=== PATIENT | female | born 1975 | race African-American/Black ===

== ENCOUNTER 2016-11-30 18:04 | Emergency (ER) | payer MEDICAID ==
[~2016-11-30] VITALS: Ht 167.6 cm; Wt 79.4 kg
[2016-11-30] MEDS ORDERED: NKM (18:15)
--- NOTE | 2016-11-30 18:39 | Emergency Room Report ---
History of Present Illness General Chief Complaint: Female Urogenital Problems Source: Patient Present Illness HPI 41-year-old female presents to the emergency department for complaint of urgency , frequency and mild dysuria for almost 2 weeks. Patient reports hematuria. Patient denies abdominal pain, abdominal tenderness, nausea, vomiting, fevers, chills. She denies low back pain or vaginal discharge. Patient states she also like check. Denies rashes. Denies CP, Palpitations, LOC, AMS, dizziness, Changes in Vision, Sensation, paresthesias, or a sudden severe headache. Allergies: Coded Allergies: No Known Allergies (Unverified , 11/30/16) Patient History Past Medical History: see triage record Past Surgical History: none Pertinent Family History: none Last Menstrual Period: Two weeks ago Now: No Reviewed Nursing Documentation: PMH: Agreed, PSxH: Agreed Nursing Documentation-PMH Past Medical History: No Stated History Review of Systems All Other Systems: negative except mentioned in HPI Physical Exam Vital Signs Date Time Temp Pulse Resp B/P Pulse Ox O2 Delivery O2 Flow Rate FiO2 11/30/16 18:11 98.4 93 16 146/87 99 Room Air Sp02 EP Interpretation: reviewed, normal General Appearance: no apparent distress, alert, GCS 15, non-toxic Head: normocephalic, atraumatic Eyes: bilateral eye PERRL, bilateral eye normal inspection ENT: hearing grossly normal, normal voice Neck: full range of motion Respiratory: lungs clear, normal breath sounds, speaking full sentences Cardiovascular #1: regular rate, rhythm Gastrointestinal: normal bowel sounds, non tender, soft, no guarding, no rebound Genitourinary: normal inspection, no CVA tenderness Musculoskeletal: back normal, gait/station normal, normal range of motion Neurologic: alert, oriented x3, responsive, motor strength/tone normal, sensory intact, speech normal Skin: normal color, no rash, warm/dry, well hydrated Medical Decision Making PA Attestation Dr. Chong is my supervising Physician whom patient management has been discussed with. Diagnostic Impression: Primary Impression: Urinary tract infection Qualified Codes: N30.00 - Acute cystitis without hematuria ER Course 41-year-old female presents to the emergency department for complaint of urgency , frequency and mild dysuria for almost 2 weeks. Patient reports hematuria. Patient denies abdominal pain, abdominal tenderness, nausea, vomiting, fevers, chills. She denies low back pain or vaginal discharge. Patient states she also like check. Denies rashes. Denies CP, Palpitations, LOC, AMS, dizziness, Changes in Vision, Sensation, paresthesias, or a sudden severe headache. Ddx considered but are not limited to UTi , Pyelo, STI, Stone, Cystitis Vital signs: are WNL, pt. is afebrile H&PE are most consistent with UTI ORDERS: - UA labs are attached : elevated WBC's , leukocytes, and few bacteria indicating urinary infection. -Urine Hcg: Negative ED INTERVENTIONS: -Pyridium PO DISCHARGE: At this time pt. is stable for d/c to home. Will provide printed patient care instructions, and any necessary prescriptions. Care plan and follow up instructions have been discussed with the patient prior to discharge. Labs Test 11/30/16 18:27 Urine Color Pale yellow Urine Appearance Clear Urine pH 5 (4.5-8.0) Urine Specific [place] 1.010 (1.005-1.035) Urine Protein Negative (NEGATIVE) Urine Glucose (UA) Negative (NEGATIVE) Urine Ketones Negative (NEGATIVE) Urine Occult Blood 1+ (NEGATIVE) Urine Nitrite Negative (NEGATIVE) Urine Bilirubin Negative (NEGATIVE) Urine Urobilinogen Normal MG/DL (0.0-1.0) Urine Leukocyte Esterase 3+ (NEGATIVE) Urine RBC 2-4 /HPF (0 - 2) Urine WBC 5-10 /HPF (0 - 2) Urine Squamous Epithelial Cells Moderate /LPF (NONE/OCC) Urine Bacteria Few /HPF (NONE) Last Vital Signs Date Time Temp Pulse Resp B/P Pulse Ox O2 Delivery O2 Flow Rate FiO2 11/30/16 18:11 98.4 93 16 146/87 99 Room Air Disposition: HOME, SELF-CARE Condition: Stable Scripts Phenazopyridine Hcl* (PYRIDIUM*) 100 Mg Tablet 100 MG ORAL THREE TIMES A DAY for 3 Days, #9 TAB Prov: Meagan Villar 11/30/16 Nitrofurantoin Monohyd/M-Cryst* (MACROBID 100 MG*) 100 Mg Capsule 100 MG ORAL EVERY 12 HOURS for 5 Days, #10 CAP Prov: Meagan Villar.Moises 11/30/16 Patient Instructions: Urinary Tract Infection Additional Instructions: Take medications as directed. Follow up with a Primary Care Provider in 3-5 days, even if your symptoms have resolved. --Please review list of primary care clinics, if you do not already have a primary care provider Return sooner to ED if new symptoms occur, or current symptoms become worse. Pyridium will cause your urine to change color (Red/Wheeler), this is a normal side effect of the medication. - Please note that this Emergency Department Report was dictated using [employer] manager technology software, occasionally this can lead to erroneous entry secondary to interpretation by the dictation equipment. Meagan Villar Nov 30, 2016 18:39
[2016-11-30 18:45] LABS: APPEARANCE,URINE CLEAR; KETONES,URINE NEGATIVE (NEGATIVE); LEUKOCYTE ESTERASE ,URINE 3+ (NEGATIVE); NITRITE,URINE NEGATIVE (NEGATIVE); PH,URINE 5 (4.5-8.0); PROTEIN,URINE NEGATIVE (NEGATIVE); UROBILINOGEN,URINE NORMAL MG/DL (0.0-1.0)
[2016-11-30 18:46] VITALS: BP 142/85
[2016-11-30 19:38] LABS: BACTERIA,URINE FEW /HPF; SQUAMOUS EPITHELIAL CELL,UR MODERATE /LPF (NONE/OCC)
[2016-11-30] MEDS ORDERED: NITROFURANTOIN100 M2 ORAL (19:44)
[2016-11-30] MEDS ORDERED: PHENAZOPYRIDIN100 MG ORAL (19:44)
[2016-11-30 19:53] VITALS: BP 142/85
== END 2016-11-30 19:53 | disposition home or self-care (01) ==
LOC: EMR 18:57
DX: N30.00 Acute cystitis without hematuria (principal)
CPT/HCPCS: 81003; 81025; 99284

== ENCOUNTER 2017-01-21 19:04 | Emergency (ER) | payer MEDICAID ==
[~2017-01-21] VITALS: Ht 167.6 cm; Wt 86.2 kg
[~2017-01-21 19:04] MED LIST: NITROFURANTOIN100 M2 ORAL; NKM; PHENAZOPYRIDIN100 MG ORAL
[2017-01-21 20:13] LABS: KETONES,URINE 1+ (NEGATIVE); LEUKOCYTE ESTERASE ,URINE 3+ (NEGATIVE); NITRITE,URINE NEGATIVE (NEGATIVE); PH,URINE 7 (4.5-8.0); PROTEIN,URINE 1+ (NEGATIVE); UROBILINOGEN,URINE NORMAL MG/DL (0.0-1.0)
[2017-01-21 20:14] LABS: APPEARANCE,URINE SLIGHTLY CLOUDY
[2017-01-21 20:18] LABS: BACTERIA,URINE MODERATE /HPF; SQUAMOUS EPITHELIAL CELL,UR MODERATE /LPF (NONE/OCC); WBC,URINE 15-20 /HPF (0 - 2)
[2017-01-21 20:19] LABS: AMORPHOUS SEDIMENT,UR FEW /LPF
--- NOTE | 2017-01-21 20:25 | Emergency Room Report ---
History of Present Illness General Chief Complaint: Female Urogenital Problems Source: Patient Present Illness HPI 31-year-old female presents to the emergency department complaining of hematuria for almost 3 weeks. Patient denies dysuria, frequency. Patient does report history of prolonged vaginal bleeding several months ago. Patient states she has scant blood in the urine and sometimes spotting. She denies trauma or fall. Patient states she feels as though she is retaining urine however does not always produce urine when she goes to the bathroom. Patient denies fevers, chills, low back pain or abdominal pain. She denies . Denies CP, Palpitations, LOC, AMS, dizziness, Changes in Vision, Sensation, paresthesias, or a sudden severe headache. Allergies: Coded Allergies: No Known Allergies (Unverified , 11/30/16) Patient History Past Medical History: see triage record Past Surgical History: none Pertinent Family History: none Last Menstrual Period: last month Now: No Immunizations: UTD Reviewed Nursing Documentation: PMH: Agreed, PSxH: Agreed Nursing Documentation-PMH Past Medical History: No Stated History Review of Systems All Other Systems: negative except mentioned in HPI Physical Exam Vital Signs Date Time Temp Pulse Resp B/P (MAP) Pulse Ox O2 Delivery O2 Flow Rate FiO2 01/21/17 19:16 98.2 71 18 145/85 99 Room Air Sp02 EP Interpretation: reviewed, normal General Appearance: no apparent distress, alert, GCS 15, non-toxic Head: normocephalic, atraumatic Eyes: bilateral eye normal inspection, bilateral eye PERRL ENT: hearing grossly normal, normal voice Neck: full range of motion Respiratory: lungs clear, normal breath sounds, speaking full sentences Cardiovascular #1: regular rate, rhythm Gastrointestinal: normal bowel sounds, non tender, soft, no guarding, no rebound Rectal: deferred Genitourinary: normal inspection, no CVA tenderness Musculoskeletal: back normal, gait/station normal, normal range of motion, non- tender Neurologic: alert, oriented x3, responsive, motor strength/tone normal, speech normal Psychiatric: judgement/insight normal, memory normal, mood/affect normal Skin: normal color, no rash, warm/dry, well hydrated Medical Decision Making PA Attestation Dr. Guajardo is my supervising Physician whom patient management has been discussed with. Diagnostic Impression: Primary Impression: UTI (urinary tract infection) Qualified Codes: N30.01 - Acute cystitis with hematuria Additional Impression: Dysfunctional uterine bleeding ER Course 31-year-old female presents to the emergency department complaining of hematuria for almost 3 weeks. Patient denies dysuria, frequency. Patient does report history of prolonged vaginal bleeding several months ago. Patient states she has scant blood in the urine and sometimes spotting. She denies trauma or fall. Patient states she feels as though she is retaining urine however does not always produce urine when she goes to the bathroom. Patient denies fevers, chills, low back pain or abdominal pain. She denies . Denies CP, Palpitations, LOC, AMS, dizziness, Changes in Vision, Sensation, paresthesias, or a sudden severe headache. Ddx considered but are not limited to: Fibroid, ectopic , Malignancy, Spontaneous , , DUB Vital signs: are WNL, pt. is afebrile H&PE are most consistent with: possible UTI, and hx of DUB ORDERS: -UA: Moderate bacteria, elevated WBC's, Leukocytes, and RBC's indicating UTI -Urine Hcg:Negative ED INTERVENTIONS: None at this time. - Encouraged PT. to follow up with her OBGYN, d/w pt. she will be placed on oral abx for UTI. DISCHARGE: At this time pt. is stable for d/c to home. Will provide printed patient care instructions, and any necessary prescriptions. Care plan and follow up instructions have been discussed with the patient prior to discharge. Labs Test 01/21/17 19:25 Urine Color Yellow Urine Appearance Slightly cloudy Urine pH 7 (4.5-8.0) Urine Specific [place] 1.010 (1.005-1.035) Urine Protein 1+ (NEGATIVE) Urine Glucose (UA) 3+ (NEGATIVE) Urine Ketones 1+ (NEGATIVE) Urine Occult Blood 3+ (NEGATIVE) Urine Nitrite Negative (NEGATIVE) Urine Bilirubin Negative (NEGATIVE) Urine Urobilinogen Normal MG/DL (0.0-1.0) Urine Leukocyte Esterase 3+ (NEGATIVE) Urine RBC 10-15 /HPF (0 - 2) Urine WBC 15-20 /HPF (0 - 2) Urine Squamous Epithelial Cells Moderate /LPF (NONE/OCC) Urine Amorphous Sediment Few /LPF (NONE) Urine Bacteria Moderate /HPF (NONE) Urine HCG, Qualitative Negative Last Vital Signs Date Time Temp Pulse Resp B/P (MAP) Pulse Ox O2 Delivery O2 Flow Rate FiO2 01/21/17 19:16 98.2 71 18 145/85 99 Room Air Disposition: HOME, SELF-CARE Condition: Stable Scripts Nitrofurantoin Monohyd/M-Cryst* (MACROBID 100 MG*) 100 Mg Capsule 100 MG ORAL EVERY 12 HOURS for 5 Days, #10 CAP Prov: Meagan Villar 01/21/17 Ibuprofen* (MOTRIN*) 600 Mg Tablet 600 MG ORAL THREE TIMES A DAY, #30 TAB 0 Refills Prov: Meagan Villar 01/21/17 Patient Instructions: Dysfunctional Uterine Bleeding, Urinary Tract Infection Additional Instructions: Take medications as directed. Follow up with a OBGYN in 3-5 days, even if your symptoms have resolved. * * May require evaluation for prolonged vaginal bleeding. --Please review list of primary care clinics, if you do not already have a primary care provider Return sooner to ED if new symptoms occur, or current symptoms become worse. - Please note that this Emergency Department Report was dictated using [employer] technology software, occasionally this can lead to erroneous entry secondary to interpretation by the dictation equipment. Meagan Villar Jan 21, 2017 20:25
[2017-01-21] MEDS ORDERED: NITROFURANTOIN100 M2 ORAL (20:52)
[2017-01-21] MEDS ORDERED: IBUPROFEN600 MG ORAL (20:52)
[2017-01-21 21:10] VITALS: BP 145/85
== END 2017-01-21 21:11 | disposition home or self-care (01) ==
LOC: EMR 20:20
DX: R31.9 Hematuria, unspecified (principal); N39.0 Urinary tract infection, site not specified; N93.8 Other specified abnormal uterine and vaginal bleeding
CPT/HCPCS: 81003; 81025; 87086; 99284

== ENCOUNTER 2017-02-04 09:36 | Emergency (ER) | payer MEDICAID ==
[~2017-02-04] VITALS: Ht 167.6 cm; Wt 81.6 kg
[~2017-02-04 09:36] MED LIST changes: +IBUPROFEN600 MG ORAL
[2017-02-04] MEDS ORDERED: EPINEPHrine 1mg/1ml Amp IM ONE (10:30)
[2017-02-04 10:46] VITALS: BP 125/76
[2017-02-04 10:47] VITALS: BP 126/80
--- NOTE | 2017-02-04 11:09 | Emergency Room Report ---
History of Present Illness General Chief Complaint: Skin Rash/Abscess Source: Patient Present Illness HPI This patient states that she has been on Macrobid for a urinary tract infection. She states that about 4 days and to the treatment she developed itching and hives. She states that the hives come and go. She denies throat swelling or tongue swelling. She denies chest tightness or shortness of breath. She denies abdominal pain. She states that she has not followed up with her primary care physician to see if her UTI as a result. She denies fever or chills. She denies nausea or vomiting. She denies dysuria or hematuria. She states that she has had relentless itching. She did try Benadryl and continues to get hives despite this. She has no other complaints. Allergies: Coded Allergies: No Known Allergies (Unverified , 11/30/16) Patient History Past Medical History: none Social History: Denies: smoking, alcohol use, drug use Reviewed Nursing Documentation: PMH: Agreed, PSxH: Agreed Nursing Documentation-PMH Past Medical History: No Stated History Review of Systems All Other Systems: negative except mentioned in HPI Physical Exam Vital Signs Date Time Temp Pulse Resp B/P (MAP) Pulse Ox O2 Delivery O2 Flow Rate FiO2 02/04/17 09:39 98.6 83 20 132/79 100 Room Air Sp02 EP Interpretation: reviewed, normal General Appearance: no apparent distress, alert, GCS 15, non-toxic Head: normocephalic, atraumatic Eyes: bilateral eye normal inspection, bilateral eye PERRL ENT: hearing grossly normal, normal pharynx, no angioedema, normal voice Neck: full range of motion, supple/symm/no masses Respiratory: chest non-tender, lungs clear, normal breath sounds, speaking full sentences Cardiovascular #1: regular rate, rhythm, no edema Gastrointestinal: normal bowel sounds, non tender, soft, non-distended, no guarding, no rebound Rectal: deferred Musculoskeletal: back normal, gait/station normal, normal range of motion, non- tender Neurologic: alert, oriented x3, responsive, motor strength/tone normal, sensory intact, speech normal Psychiatric: judgement/insight normal, memory normal, mood/affect normal, no suicidal/homicidal ideation Skin: warm/dry, well hydrated, other - scattered hives Medical Decision Making Diagnostic Impression: Primary Impression: Allergic reaction Additional Impression: Hives ER Course This patient has hives that are likely secondary to an allergic reaction to Macrobid. There is no evidence of anaphylaxis on physical exam. Overall, the patient is well appearing. She was concerned about her urinary tract infection I want to make sure that this was resolved. Urinalysis is consistent with resolution of her urinary tract infection. Sedate her steroids we'll place her on a short course of steroids. After further discussion with the patient, she decided to like to get IM epinephrine to resolve her hives. I did educate the patient that this may only worked temporarily. Given the patient is young and healthy, I felt that this is an appropriate option to help resolve her itching and hives. She tolerated the epinephrine without complication or incident. She is educated to not get Macrobid in the future. She indicated understanding. She is given return precautions and followup instructions. Laboratory Tests Test 02/04/17 10:40 Urine Color Pale yellow Urine Appearance Cloudy Urine pH 7 (4.5-8.0) Urine Specific [place] 1.010 (1.005-1.035) Urine Protein 2+ (NEGATIVE) H Urine Glucose (UA) Negative (NEGATIVE) Urine Ketones Negative (NEGATIVE) Urine Occult Blood 5+ (NEGATIVE) H Urine Nitrite Negative (NEGATIVE) Urine Bilirubin Negative (NEGATIVE) Urine Urobilinogen Normal MG/DL (0.0-1.0) Urine Leukocyte Esterase 3+ (NEGATIVE) H Urine RBC Pending Urine WBC Pending Urine Squamous Epithelial Cells Pending Urine Bacteria Pending Last Vital Signs Date Time Temp Pulse Resp B/P (MAP) Pulse Ox O2 Delivery O2 Flow Rate FiO2 02/04/17 10:47 98.0 78 18 126/80 98 Room Air Status: improved Disposition: HOME, SELF-CARE Condition: Improved Referrals: NON PHYSICIAN (PCP) VENKATESH MAZARIEGOS D.O. Feb 04, 2017 11:09
[2017-02-04 11:13] LABS: APPEARANCE,URINE CLOUDY; KETONES,URINE NEGATIVE (NEGATIVE); LEUKOCYTE ESTERASE ,URINE 3+ (NEGATIVE); NITRITE,URINE NEGATIVE (NEGATIVE); PH,URINE 7 (4.5-8.0); PROTEIN,URINE 2+ (NEGATIVE); UROBILINOGEN,URINE NORMAL MG/DL (0.0-1.0)
[2017-02-04 11:52] LABS: BACTERIA,URINE MANY /HPF; RBC,URINE 40-60 /HPF (0 - 2); SQUAMOUS EPITHELIAL CELL,UR MANY /LPF (NONE/OCC); WBC,URINE TNTC /HPF (0 - 2)
[2017-02-04] MEDS ORDERED: PREDNISONE20 MG ORAL (12:19)
[2017-02-04 12:25] VITALS: BP 134/76
[2017-02-04 15:09] LABS: APPEARANCE,URINE SLIGHTLY CLOUDY; KETONES,URINE 3+ (NEGATIVE); LEUKOCYTE ESTERASE ,URINE 3+ (NEGATIVE); NITRITE,URINE NEGATIVE (NEGATIVE); PH,URINE 6 (4.5-8.0); PROTEIN,URINE NEGATIVE (NEGATIVE); UROBILINOGEN,URINE NORMAL MG/DL (0.0-1.0)
[2017-02-04 15:22] LABS: SQUAMOUS EPITHELIAL CELL,UR FEW /LPF (NONE/OCC)
[2017-02-04 15:23] LABS: AMORPHOUS SEDIMENT,UR FEW /LPF; BACTERIA,URINE MODERATE /HPF
[2017-02-04] MEDS ORDERED: KEFLEX500 MG ORAL (15:36)
[2017-02-04] MEDS ORDERED: DIFLUCAN150 MG PO (16:18)
[2017-02-04] MEDS ORDERED: Fluconazole 100mg tab ORAL ONE (16:30)
== END 2017-02-04 12:32 | disposition home or self-care (01) ==
LOC: EMR 10:13
DX: L50.9 Urticaria, unspecified (principal); T37.8X5A Adverse effect of other specified systemic anti-infectives and antiparasitics, initial encounter
CPT/HCPCS: 81001; 81003; 87086; 96372; 99284; J0171